=== PATIENT | male | born 1990 | race Two or more races ===

== ENCOUNTER 2021-11-17 00:17 | Emergency (ER) | payer OTHER, SELFPAY ==
[2021-11-17 00:25] VITALS: BP 118/92; PULSE 64; RESP 18; TEMP 36.8; O2SAT 98; BMI 29.5
--- NOTE | 2021-11-17 00:48 | ED.WOUNDLAC ---
HPI - Wound/Laceration General Chief Complaint: Wound/Laceration Stated Complaint: work inj, sliced thru finger Time Seen by Provider: 11/17/21 00:36 Source: patient Mode of arrival: ambulatory Limitations: no limitations History of Present Illness HPI narrative: 31-year-old male no significant medical history presents to the emergency department complaints of left middle finger laceration status post cutting his finger accidentally while at work. Patient tells me he was cutting tiwari, knife slipped and he accidentally cut his middle finger. Denies numbness or tingling. Unsure of tetanus status. Related Data Previous Rx's Medication Instructions Recorded doxycycline hyclate 100 mg capsule 100 mg PO BID 10 days #20 caps 11/17/21 Allergies Allergy/AdvReac Type Severity Reaction Status Date / Time No Known Allergies Allergy Verified 11/17/21 00:45 Review of Systems Review of Systems: Constitutional : No Fever, No Chills, Cardiovascular : No Chest Pain, No SOB Respiratory : No Dyspnea Gastrointestinal : No abdominal pain Musculoskeletal : No Joint Swelling Skin : No rash, positive skin laceration Neuro : No Weakness, No Numbness Psych : No SI/HI Yes all other systems are reviewed and are negative [facility] Past Medical History Attestation statement: The following information was validated with the patient. Source: old records reviewed and nursing notes reviewed Social History Social History Advance Directives: No Physical Exam Vital Signs: Vital Signs: Last Vital Signs Temp 98.2 F 11/17/21 00:25 Pulse 64 11/17/21 00:25 Resp 18 11/17/21 00:25 BP 118/92 H 11/17/21 00:25 Pulse Ox 98 11/17/21 00:25 O2 Del Method 11/17/21 00:25 BMI result Body Mass Index 29.5 vss Appearance: Alert.? Oriented X3.? No acute distress.? Head: Normocephalic, atraumatic, no step-offs or deformities Eyes: Pupils equal, round and reactive to light.? CVS: Normal heart rate and rhythm.? Pulses normal.? Respiratory: No respiratory distress.? Breath sounds normal.? Abdomen: Soft and nontender.? Skin: Skin warm and dry.? Normal skin color.? Normal skin turgor.?+ laceration to finger pad of left middle finger 2 cm w/ slight nailbed involvment Extremities: No lower extremity edema.? No calf ttp. 5/5 strength to bilateral upper and lower extremities Neuro: Oriented X 3.? No motor deficit.? No sensory deficit. CN 2-12 intact Course Reevaluation(s) Reevaluation #1: Area was sutured using 5-0 sutures X3 tolerated procedure well. Patient will be given his tetanus shot, advised him to return with new or worsening symptoms. Advised him to follow up with the were connection and get suture removal in 7-10 days. Time: 01:26 MDM - Wound/Laceration MDM Narrative Medical decision making narrative: [age] yo m presents w/ work related injury small lac to left middle finger. Unsure of tetanus status PE- laceration to finger pad of left middle finger 2 cm w/ slight nailbed involvment Plan- tetanus and suture Medical Records Attestation: I reviewed the patient's medical records. Lab Data Attestation: I reviewed the patient's lab results. Procedures Laceration Laceration 1: Site: other (left middle finger ) Side (If applicable): left Size (cm): 2 Description: linear Depth: simple, single layer Local Anesthetic: lidocaine 1% Amount of anesthesia used (mL): 4 Pre-repair: wound explored Skin layer closed with: nylon Size (cm): 5-0 Number of sutures: 3 Technique: simple, interrupted Critical Care Time Critical Care Time Critical Care Time: No Discharge Plan Discharge Clinical Impression: Laceration, Work related injury Patient Disposition: Home, Self-Care Instructions: Laceration (ED), Laceration Without Closure (ED) Additional Instructions: Take your medications as prescribed. If you were prescribed antibiotics today, it is important that you take your medication to their entirety, do not skip any doses, do not finish them early. Follow-up with your primary care provider this week. Return to the emergency department with new or worsening symptoms. Such as fevers, chills, chest pain, shortness of breath, nausea, vomiting, dizziness, headache, vision changes, lethargy In case of emergency call 911 Return in 7-10 days for suture removal Follow-up with were connection as this was a work related injury Prescriptions: New doxycycline hyclate 100 mg capsule 100 mg PO BID 10 Days Qty: 20 0RF Referrals: Physician,Unknown J [Primary Care Provider] - 2 days
[2021-11-17] MEDS: Diphth,Pertus(ACell),Tet Adult 0.5 ML SYRINGE IM (01:29)
[2021-11-17] MEDS: Lidocaine HCl 1 % 20 ML VIAL 5 ML SUBCUT (01:31)
== END 2021-11-17 01:34 | disposition home or self-care (01) ==
PROVIDERS: Emergency Provider Internal Medicine
DX: S61.213A Laceration without foreign body of left middle finger without damage to nail, initial encounter (principal); W26.0XXA Contact with knife, initial encounter; Y93.G1 Activity, food preparation and clean up; Y92.511 Restaurant or cafe as the place of occurrence of the external cause; Y99.0 Civilian activity done for income or pay
CPT/HCPCS: 12001; 90471; 90715; 99282; 99284